=== PATIENT | male | born 1960 | race Caucasian/White ===

== ENCOUNTER → 2016-08-21 | Outpatient (CLI) | payer BC, OTHER ==
--- NOTE | 2016-08-21 14:17 | MR ---
EXAMINATION TYPE: MR knee LT wo con DATE OF EXAM: 08/21/2016 9:53 AM COMPARISON: NONE HISTORY: Left knee pain, prev surgery TECHNIQUE: Multiplanar, multisequence imaging of the left knee is performed without IV contrast. FINDINGS: There is artifact due to patient's postop changes. Osteoarthritic changes are present, tric ompartmental marginal spurring, susceptibility artifact may limit sensitivity MEDIAL MENISCUS: Some diffuse increased signal present within the meniscus is likely degenerative sig nal, no definite tear LATERAL MENISCUS: Lateral meniscus shows some possible fragmentation, diffuse abnormal signal present within distorted meniscus suggestive of degenerative complex tear. CRUCIATE LIGAMENTS: Anterior and posterior cruciate ligaments are markedly attenuated, suspect at [address] partial tears. COLLATERAL LIGAMENTS: The medial collateral ligament and lateral collateral ligament complex are inta ct and unremarkable. EXTENSOR MECHANISM: Visualized quadriceps and patellar tendons are intact. EFFUSION: There is a small joint effusion. POPLITEAL CYST: No popliteal/bergman cyst. TRICOMPARTMENT SPACES: Marked arthropathy CARTILAGE: Articular cartilage somewhat irregular, grade 3, possible grade IV chondromalacia present in the medial compartment and possibly posterior patella BONE MARROW SIGNAL: No focal abnormal marrow signal is appreciated. OTHER: No additional significant abnormality is appreciated. IMPRESSION: Marked osteoarthritic changes, postop changes may limit sensitivity. Suspect degenerative tear of the lateral meniscus. Degenerative changes present along the anterior and posterior cruciate ligaments s howing attenuation possibly partial tears. Exam is limited.
== END | disposition home or self-care (01) ==
LOC: RADMRIMAIN 09:02
PROVIDERS: ATTEND Family Medicine
DX: M23.92 Unspecified internal derangement of left knee (principal); M17.12 Unilateral primary osteoarthritis, left knee; Z98.890 Other specified postprocedural states

== ENCOUNTER → 2020-05-13 | Outpatient (CLI) | payer BC, OTHER ==
--- NOTE | 2020-05-13 11:44 | XR ---
EXAMINATION TYPE: XR chest 2V DATE OF EXAM: 05/13/2020 COMPARISON: NONE TECHNIQUE: PA and lateral views submitted. HISTORY: Preop FINDINGS: The lungs are clear and there is no pneumothorax, pleural effusion, or focal pneumonia. Degenerativ e changes of the spine. No overt failure. Biapical pleural thickening. IMPRESSION: 1. No acute process.
== END | disposition home or self-care (01) ==
LOC: RADXRYALE 10:47
PROVIDERS: ATTEND Family Medicine
DX: Z01.818 Encounter for other preprocedural examination (principal)
CPT/HCPCS: 71046

== ENCOUNTER → 2023-06-24 | Outpatient (CLI) | payer BC, OTHER ==
--- NOTE | 2023-06-24 10:15 | XR ---
EXAMINATION TYPE: XR knee complete LT DATE OF EXAM: 06/24/2023 9:49 AM CLINICAL INDICATION:Male, 62 years old with history of [id number] LT KNEE PAIN; [facility] COMPARISON: None. TECHNIQUE: XR knee complete LT; examined in Frontal, lateral and oblique projections. FINDINGS: Status post total knee arthroplasty changes with hardware in appropriate alignment and in tact. No evidence of fracture. IMPRESSION: Status post total knee arthroplasty changes with hardware intact and appropriate alignment. No fractu res identified.
== END | disposition home or self-care (01) ==
LOC: RADXRYALE 09:33
PROVIDERS: ATTEND Physician Assistant Medical
DX: M25.562 Pain in left knee (principal); Z96.652 Presence of left artificial knee joint